=== PATIENT | male | born 1960 | race American Indian/Alaskan Native ===

== ENCOUNTER 2016-09-18 00:21 | Emergency (ER) | payer MEDICAID ==
[2016-09-18] MEDS ORDERED: NACL 0.9% 1000 ML 1,000 ML ONE (00:41)
[2016-09-18] MEDS ORDERED: NACL 0.9% 1000 ML 1,000 ML IV ONE (00:42)
[2016-09-18 01:42] LABS: Anion Gap 23 mmol/L; Blood Urea Nitrogen 12 mg/dL (9-20); Calcium 8.7 mg/dL (8.4-10.2); Carbon Dioxide 23 mmol/L (22-30); Chloride 97.7 mmol/L (98-107); Glucose 268 mg/dL (75-100); Potassium 4.1 mmol/L (3.6-5.0); Sodium 140 mmol/L (137-145)
[2016-09-18 02:14] LABS: Hemoglobin 13.4 gm/dl (11.8-15.2); Mean Corpuscular HGB Conc 33 % (32-34); Mean Corpuscular Hemoglobin 30 pg (28-32); Mean Corpuscular Volume 89 fl (84-94); Platelet Count 239 K/mm3 (140-440); Red Blood Count 4.52 M/mm3 (3.65-5.03); Red Cell Distribution Width 12.5 % (13.2-15.2); White Blood Count 6.1 K/mm3 (4.5-11.0)
--- NOTE | 2016-09-18 03:48 | Emergency Department Report ---
HPI - General Chief Complaint: Weakness Time Seen by Provider: 09/18/16 03:32 - HPI HPI: The patient is a 56-year-old male with a history of diabetes who presents for evaluation of lightheadedness. The patient states that at noon yesterday, greater than 12 hours prior to my evaluation, he experienced constant and severe lightheadedness, exacerbated with standing and exertion, shortly after his brother's general. He states that he consumed alcohol and drank little to no water yesterday morning. The patient denies fever, head injury, headache, chest pain, dyspnea, hemoptysis, neck pain, neck stiffness, paresthesias, facial drooping, motor deficit, slurred speech, seizure-like activity, urine or bowel incontinence or retention, or other focal neurological deficit. ED Past Medical Hx - Past Medical History Previous Medical History?: Yes Hx Hypertension: Yes Hx Diabetes: Yes - Surgical History Past Surgical History?: Yes Additional Surgical History: right index finger surgery - Social History Smoking Status: Never Smoker Substance Use Type: Alcohol - Medications Home Medications: Home Medications Medication Instructions Recorded Confirmed Last Taken Type Ibuprofen [Motrin] 800 mg PO Q8H PRN #30 tablet 03/05/14 Unknown Rx amLODIPine [Norvasc] 5 mg PO DAILY #30 tab 03/05/14 Unknown Rx traMADol [Ultram 50 MG tab] 50 mg PO Q8HR PRN #15 tablet 04/09/14 Unknown Rx metFORMIN [Glucophage] 500 mg PO QDAY #31 tab 09/18/16 Unknown Rx ED Review of Systems ROS: Stated complaint: WEAKNESS Other details as noted in HPI Constitutional: reports lightheadedness and weakness denies: fever ENT: denies: throat or neck pain Respiratory: denies: cough, shortness of breath Cardiovascular: denies: chest pain Endocrine: denies unexplained weight loss or gain Gastrointestinal: denies: abdominal pain, nausea Genitourinary: denies: dysuria Musculoskeletal: denies: leg swelling Skin: denies: rash Neurological: denies: headache Hematological/Lymphatic: denies: easy bleeding or easy bruising Psych: denies sadness or hopelessness Physical Exam - Physical Exam Vital Signs: Vital Signs 09/18/16 09/18/16 09/18/16 00:32 00:55 02:36 Temperature 98.7 F Pulse Rate 88 102 H 100 H Respiratory 18 18 18 Rate Blood Pressure 151/92 Blood Pressure 151/92 151/90 148/92 [Right] O2 Sat by Pulse 100 99 4 L Oximetry Physical Exam: General: well-nourished, well-developed, no acute distress Head: Normocephalic, atraumatic Eyes: normal sclera, EOMI, PERRL ENT: Mucous membranes are pale and dry Neck: No neck stiffness, no cervical adenopathy Respiratory: Breath sounds equal bilaterally, no wheezing, rales, or rhonchi Cardio: S1 and S2 present, no murmurs, rubs, gallops, capillary refill is delayed Abdomen: Normoactive bowel sounds, soft abdomen, no rigidity, no guarding or rebound tenderness Chest WALL/Back: No tenderness to palpation of the chest wall, no CVA tenderness with percussion Musc: No pitting edema Skin: No rash Neuro: Alert oriented 3, no facial drooping, normal speech, no sensation or motor deficits in the arms or legs, reflexes 2+ and symmetric on DTR testing, no obvious gross neuro deficits Psych: Normal affect ED Course Vital Signs 09/18/16 09/18/16 09/18/16 00:32 00:55 02:36 Temperature 98.7 F Pulse Rate 88 102 H 100 H Respiratory 18 18 18 Rate Blood Pressure 151/92 Blood Pressure 151/92 151/90 148/92 [Right] O2 Sat by Pulse 100 99 4 L Oximetry ED Medical Decision Making - Lab Data Result diagrams: 09/18/16 00:49 09/18/16 00:49 - Medical Decision Making The patient was seen and examined by myself. The patient is placed on a youth nutritional monitor and continuous pulse ox. On initial evaluation, the patient was found to be in no distress. Evaluation orders were placed. The patient is given 1 L normal saline fluid bolus for treatment of dehydration. Lab results revealed mildly elevated glucose of 250, and otherwise were grossly unremarkable. The patient was reevaluated and reported that their symptoms were markedly improved. The patient is stable for discharge with outpatient follow- up. The patient is given follow-up and return instructions. The patient expressed understanding and agreed with the plan. The patient is discharged in stable condition. Critical care attestation.: If time is entered above; I have spent that time in minutes in the direct care of this critically ill patient, excluding procedure time. ED Disposition Clinical Impression: Dehydration, Orthostatic lightheadedness, Acute hyperglycemia Disposition: DISCHARGED TO HOME OR SELFCARE Is pt being admited?: No Does the pt Need Aspirin: No Condition: Stable Instructions: Diabetic Hyperglycemia (ED), Dehydration (ED), Near Syncope (ED) Prescriptions: metFORMIN [Glucophage] 500 mg PO QDAY #31 tab Referrals: PRIMARY CARE, [Primary Care Provider] - 3-5 Days Time of Disposition: 03:40
[2016-09-18 04:29] VITALS: BP 142/82
[2016-09-18 04:30] LABS: Anisocytosis 1+; Blastocytes % (Manual) 0 %; Diff Status Complete
== END 2016-09-18 04:29 | disposition home or self-care (01) ==
LOC: ED 00:21
DX: E11.65 Type 2 diabetes mellitus with hyperglycemia (principal); E86.0 Dehydration; R42 Dizziness and giddiness; I10 Essential (primary) hypertension
CPT/HCPCS: 36415; 80048; 85007; 85025; 96360; 99284; J7030

== ENCOUNTER 2021-06-04 06:13 | Day surgery (SDC) | payer MEDICAID ==
[2021-06-02 10:51] LABS: BUN/Creatinine Ratio 10; Blood Urea Nitrogen 11 mg/dL (9-20); Calcium 9.4 mg/dL (8.4-10.2); Hemolysis Index 36
[~2021-06-04 06:13] MED LIST: ACETAMINOPHEN 500 MG TAB PO SCH; BUPIVACAINE/PF (0.5%) 5 MG/1 ML 30 ML VIAL INFILTRATI ONE; CELECOXIB 200 MG CAP PO NR; GABAPENTIN 300 MG CAP PO NR; LACTATED RINGERS 1,000 ML IV SCH; LIDOCAINE (1%) 10 MG/1 ML VIAL 20 ML MDV INFILTRATI ONE; MIDAZOLAM 2 MG/2 ML INJ IV NR; SODIUM CHLORIDE 0.9% IRR 1,500 ML BOTTLE IR ONE; SODIUM CHLORIDE 0.9% IRRIG SOLN 2000 ML IR ONE
[2021-06-04 06:53] LABS: Hematocrit 35.6 % (35.5-45.6); Hemoglobin 12.7 gm/dl (11.8-15.2); Mean Corpuscular HGB Conc 36 % (32-34); Mean Corpuscular Volume 85 fl (84-94); Platelet Count 297 K/mm3 (140-440); Red Blood Count 4.21 M/mm3 (3.65-5.03); Red Cell Distribution Width 13.7 % (13.2-15.2)
[2021-06-04] MEDS ORDERED: BUPIVACAINE/PF (0.5%) 5 MG/1 ML 30 ML VIAL INFILTRATI ONE ×2 (07:17→08:20)
[2021-06-04] MEDS ORDERED: LIDOCAINE (1%) 10 MG/1 ML VIAL 20 ML MDV ONE (07:17)
[2021-06-04] MEDS ORDERED: DEXTROSE 50% IN WATER (25GM) 50 ML VIAL IV ONE (07:29)
--- NOTE | 2021-06-04 07:29 | Anesthesia Day of Surgery ---
Anesthesia Day of Surgery - Day of Surgery Patient Examined: Yes Patient H&P Reviewed: Yes Patient is NPO: Yes
--- NOTE | 2021-06-04 07:29 | Anesthesia Consultation ---
Anesthesia Consult and Med Hx Date of service: 06/04/21 - Airway Anesthetic Teeth Evaluation: Poor (some missing, broken teeth) ROM Head & Neck: Adequate Mental/Hyoid Distance: Adequate Mallampati Class: Class II Intubation Access Assessment: Probably Good - Pre-Operative Health Status ASA Pre-Surgery Classification: ASA3 Proposed Anesthetic Plan: General - Pulmonary Hx Smoking: No Hx Sleep Apnea: No (JOSE L PRE SCREEN HIGH RISK) - Cardiovascular System Hx Hypertension: Yes (X 20 YRS) - Central Nervous System Hx Back Pain: Yes (arthritis) Hx Psychiatric Problems: No - Gastrointestinal Hx Gastroesophageal Reflux Disease: Yes - Endocrine Hx Liver Disease: Yes (gallbladder disease) Hx Insulin Dependent Diabetes: Yes - Hematic Hx Anemia: No - Other Systems Hx Cancer: No
[2021-06-04] MEDS ORDERED: ONDANSETRON 4 MG/2 ML INJ IV PRN (07:35)
[2021-06-04] MEDS ORDERED: HYDROcodone/ACETAMINOPHEN 5-325 MG TAB PO PRN (07:35)
[2021-06-04] MEDS ORDERED: HYDROmorphone 1 MG/1 ML INJ IV PRN (07:35)
[2021-06-04] MEDS ORDERED: DEXTROSE 50% IN WATER (25GM) 50 ML SYRINGE IV ONE ×2 (07:38→08:00)
[2021-06-04] MEDS ORDERED: LIDOCAINE MPF (2%) 20 MG/1 ML VIAL 5 ML ONE (07:39)
[2021-06-04] MEDS ORDERED: propofoL 200 MG/20 ML VIAL IV ONE (07:39)
[2021-06-04] MEDS ORDERED: HYDROmorphone 1 MG/1 ML INJ ONE (07:39)
[2021-06-04] MEDS ORDERED: ROCURONIUM 50 MG/5 ML INJ IV ONE (07:39)
[2021-06-04] MEDS ORDERED: FAMOTIDINE 20 MG/2 ML INJ IV NR (08:00)
[2021-06-04] MEDS ORDERED: ceFAZolin/STERILE WATER 2 GM/20 ML SYRINGE IV NR (08:00)
[2021-06-04] MEDS ORDERED: SODIUM CHLORIDE 0.9% IRR 1,500 ML BOTTLE IR ONE (08:20)
[2021-06-04] MEDS ORDERED: LIDOCAINE (1%) 10 MG/1 ML VIAL 20 ML MDV INFILTRATI ONE (08:20)
[2021-06-04] MEDS ORDERED: SODIUM CHLORIDE 0.9% IRRIG SOLN 2000 ML IR ONE (08:20)
[2021-06-04] MEDS ORDERED: PHENYLEPHRINE/NS 1,000 MCG/10 ML SYRINGE (OR USE) IV ONE (08:29)
[2021-06-04] MEDS ORDERED: ePHEDrine SULFATE 50 MG/1 ML INJ ONE (08:33)
[2021-06-04] MEDS ORDERED: SODIUM CHLORIDE 0.9% 1000 ML 1,000 ML ONE (09:02)
[2021-06-04] MEDS ORDERED: GLYCOPYRROLATE 0.4 MG/2 ML INJ ONE (09:04)
[2021-06-04] MEDS ORDERED: NEOSTIGMINE 10MG/10 ML INJ MDV ONE (09:04)
[2021-06-04] MEDS ORDERED: KETOROLAC 30 MG/1 ML INJ ONE (09:04)
[2021-06-04] MEDS ORDERED: ONDANSETRON 4 MG/2 ML INJ ONE (09:04)
--- NOTE | 2021-06-04 09:31 | Short Stay Summary ---
Short Stay Documentation Date of service: 06/04/21 - History Principal diagnosis: symptomatic cholelithiasis H&P: obtained from office - Allergies and Medications Current Medications: Allergies No Known Allergies Allergy (Verified 04/09/14 07:49) Home Medications Medication Instructions Recorded Confirmed Last Taken Type traMADoL [Ultram 50 MG tab] 50 mg PO Q8HR PRN #15 tablet 04/09/14 05/31/21 08:00 Rx Esomeprazole Magnesium [Nexium 20 mg PO DAILY 05/31/21 05/31/21 06/03/21 08:00 History 24Hr] Gabapentin 300 mg PO PRN PRN 05/31/21 05/31/21 06/03/21 08:00 History Insulin Lispro Protamin/Lispro 1 unit SQ TID 05/31/21 06/04/21 06/03/21 16:30 History [Humalog Mix 75-25 Vial] Potassium Citrate [Potassium 10 meq PO BID 05/31/21 05/31/21 06/03/21 08:00 History Citrate ER] amLODIPine [Norvasc] 10 mg PO DAILY 05/31/21 06/04/21 06/03/21 08:00 History hydroCHLOROthiazide [HCTZ] 25 mg PO QDAY 05/31/21 05/31/21 06/03/21 08:00 History Active Medications Acetaminophen (Acetaminophen 500 Mg Tab) 1,000 mg PO PREOP LUIS ALBERTO Last Admin: 06/04/21 07:00 Dose: 1,000 mg Documented by: Hydrocodone Bitart/Acetaminophen (Hydrocodone/Acetaminophen 5-325 Mg Tab) 2 each PO ONCE PRN PRN Reason: Pain, Moderate (4-6) Stop: 06/04/21 12:00 Cefazolin Sodium (Cefazolin/Sterile Water 2 Gm/20 Ml Syringe) 2 gm IV PREOP NR Stop: 06/04/21 23:59 Celecoxib (Celecoxib 200 Mg Cap) 200 mg PO PREOP NR Stop: 06/04/21 23:59 Last Admin: 06/04/21 07:00 Dose: 200 mg Documented by: Famotidine (Famotidine 20 Mg/2 Ml Inj) 20 mg IV ONCE@0800 NR Stop: 06/04/21 10:00 Gabapentin (Gabapentin 300 Mg Cap) 300 mg PO PREOP NR Stop: 06/04/21 23:59 Last Admin: 06/04/21 07:00 Dose: 300 mg Documented by: Hydromorphone HCl (Hydromorphone 1 Mg/1 Ml Inj) 0.5 mg IV Q10MIN PRN PRN Reason: Pain , Severe (7-10) Stop: 06/04/21 23:00 Lactated Ringer's (Lactated Ringers) 1,000 mls @ 100 mls/hr IV DIRECT LUIS ALBERTO Stop: 06/04/21 23:59 Last Admin: 06/04/21 07:00 Dose: 100 mls/hr Documented by: Midazolam HCl (Midazolam 2 Mg/2 Ml Inj) 2 mg IV PREOP NR Stop: 06/04/21 23:59 Ondansetron HCl (Ondansetron 4 Mg/2 Ml Inj) 4 mg IV ONCE PRN PRN Reason: Nausea And Vomiting Stop: 06/04/21 12:00 - Brief post op/procedure progress note Date of procedure: 06/04/21 Pre-op diagnosis: symptomatic cholelithiasis Post-op diagnosis: same Procedure: laparoscopic cholecystectomy Anesthesia: GETA, local Findings: contracted gallbladder containing moderate sized stone and adhesions to omentum Surgeon: TERESA CAMPBELL Estimated blood loss: minimal Pathology: list (gallbladder) Specimen disposition: to lab Condition: stable - Hospital course Hospital course: Pt observed in PACU and discharged to home in stable condition when criteria met - Disposition Condition at discharge: Good Disposition: 01 HOME / SELF CARE / HOMELESS Short Stay Discharge Plan Activity: other (no heavy lifting x 1wk) Diet: regular Wound: open to air, per your surgeon's advice Follow up with: FRANCISCA SILVERMAN MD [Primary Care Provider] - 7 Days TERESA CAMPBELL DO [Staff Physician] - 14 Days Prescriptions: HYDROcodone/APAP 5-325 [Blair 5-325 mg TAB] 1 each PO Q6H PRN #20 tablet PRN Reason: Pain , Severe (7-10)
[2021-06-04 10:33] VITALS: BP 120/82
--- NOTE | 2021-06-04 10:35 | Post Anesthesia Evaluation ---
- Post Anesthesia Evaluation Patient Participated: Yes Airway Patent: Yes Stable Respiratory Function: Yes Nausea/Vomiting: No Temp > 96.8F: Yes Pain Manageable: Yes Adequeate Hydration: Yes Anesthesia Complications: No
--- NOTE | 2021-06-05 16:49 | Operative Report ---
Operative Report Operative Report: Date of procedure: 06/04/21 Pre-op diagnosis: symptomatic cholelithiasis Post-op diagnosis: same Procedure: laparoscopic cholecystectomy Anesthesia: GETA, local Findings: contracted gallbladder containing moderate sized stone and adhesions to omentum Surgeon: TERESA CAMPBELL Estimated blood loss: minimal Pathology: list (gallbladder) Specimen disposition: to lab Condition: stable Hospital course: Pt observed in PACU and discharged to home in stable condition when criteria met HPI an indication: 61-year-old male who presented to the surgery clinic with complaints of sharp right upper quadrant abdominal pain occurring more frequently and affecting his daily living. Patient states that the pain has been ongoing for months. The pain was associated with fatty foods and often led to nausea and vomiting. An ultrasound was performed which showed gallstones without evidence of cholecystitis or bile duct dilatation. It was recommended that the patient undergo cholecystectomy. All risks, benefits, alternatives to surgery were discussed in detail and questions answered. Consent was obtained for laparoscopic, possible open cholecystectomy, possible cholangiogram. Procedure in detail: The patient was identified in the preoperative area and taken back to the operating room, placed on the operating room table in supine position. After anesthesia was induced, the abdomen was prepped and draped in usual sterile fashion and timeout was performed. Local anesthetic was infiltrated into all of the skin incision sites. A supraumbilical incision was made through which a Veress needle was inserted. The Veress needle positioning was confirmed using the saline drop test and the abdomen insufflated to 15 mmHg. The Veress needle was then removed and a 5 mm Optiview trocar was placed through an incision. The abdomen was inspected and there was no underlying injury to any of the abdominal structures. An additional 12 mm subxyphoid port, 5 mm right upper quadrant, and 5 mm right lateral abdominal ports were placed under direct visualization. The patient was then placed into reverse Trendelberg and tilted to the left. The gallbladder was contracted with adhesions to the omental. Omental adhesions were carefully dissected with hook electrocautery until the entirety of the gallbladder could be visualized. The cystic duct and artery were carefully skeletonized. The medial and lateral peritoneal attachments to the gallbladder were dissected using a combination of blunt dissection with the [place] and hook electrocautery. The cystic duct and artery were the only 2 structures seen entering the gallbladder and the critical view was successfully obtained. 3 clips were placed on the proximal aspect of the cystic duct and 1 distally and this was transected in between the clips usin g EndoShears. 2 clips were placed on the proximal aspect of the cystic artery and 1 distally this was transected in between the clips using EndoShears. The gallbladder was dissected from the liver bed using electrocautery. The gallbladder was placed into a Endo Catch bag and removed from the abdomen via the 12mm port. The gallbladder was palpated and contained a medium sized stone. The gallbladder fossa was then inspected and there was no identifiable bleeding or bile leakage. Hemostasis was ensured. The clips on the cystic duct and artery were visualized and intact. The patient was then placed into neutral position. The 12 mm port fascia was closed with interrupted 0 Vicryl stitches. The remaining ports were removed under direct visualization. Skin incisions were closed with 4-0 Monocryl subcuticular stitches and skin glue. All skin incisions were once again infiltrated with local anesthetic. At the end case all sponge, instrument, sharp counts were correct 2. The patient was awoken from anesthesia, extubated, and taken to PACU in stable condition.
== END 2021-06-04 11:10 | disposition home or self-care (01) ==
LOC: OR 06:13
PROVIDERS: ATTEND Surgery
DX: K80.10 Calculus of gallbladder with chronic cholecystitis without obstruction (principal); K66.0 Peritoneal adhesions (postprocedural) (postinfection); Z20.822 Contact with and (suspected) exposure to COVID-19; R59.0 Localized enlarged lymph nodes; I10 Essential (primary) hypertension; E11.9 Type 2 diabetes mellitus without complications; M19.90 Unspecified osteoarthritis, unspecified site; K21.9 Gastro-esophageal reflux disease without esophagitis; Z79.4 Long term (current) use of insulin; Z79.899 Other long term (current) drug therapy; Z98.890 Other specified postprocedural states
CPT/HCPCS: 36415; 47562; 80048; 82962; 85027; 88304; J0690; J1170; J1885; J2250; J2370; J2405; J2704; J2710; J7030; J7120; U0003; A4217